=== PATIENT | female | born 1940 | race Caucasian/White ===

== ENCOUNTER 2020-07-31 18:47 | Emergency (ER) | payer OTHER, MEDICAID ==
[~2020-07-31] VITALS: Ht 167.6 cm; Wt 66.7 kg
--- NOTE | 2020-07-31 19:00 | NUR ---
ERMD EVALUATING PATIENT IN AMBULANCE.
[2020-07-31 19:20] VITALS: BP 161/82
--- NOTE | 2020-07-31 19:51 | NUR ---
1952 BIBA DIRECTLY TO ER BED 9.
--- NOTE | 2020-07-31 20:00 | NUR ---
PER FACILITY PT IS COVID +.
--- NOTE | 2020-07-31 20:00 | NUR ---
80 Y/O FEMALE BIBA FROM [facility] S/P FALL . PER PT SHE WAS BEING TRANSFERRED FROM CHAIR TO HER BED IN A SLING AND THE SLING TIPPED OVER. PT STATES SHE FELL ON THE BACK OF HER HEAD AND BL ELBOWS. PT DENIES LOC , N/V , BLURRY VISION. PT C/O OF 6/10 THROBBING HEADACHE. PT SECONDARY C/O OF BL ELBOW & PELVIC PAIN. +PEDAL PULSE ON LEFT LE. PT HAS AKA ON RT LE. + BL RADIAL PULSES. A/O X 4. PERRLA. +SURGEON'S ASSISTANT STRENGTH. OBSERVED FENTANYL PATCH ON LEFT CHEST. PT LAYING SUPINE IN BED, LOCKED AND IN LOWEST POSITION, VSS. NO ACUTE DISTRESS NOTED. PMH: CHF, CVA, HTN, PVD, COPD, AKA,HYPERLIPIDEMIA AX: SULFA
--- NOTE | 2020-07-31 20:05 | NUR ---
lab at bedside.
[2020-07-31 20:21] LABS: BASOPHILS % (AUTO) 0.4 % (0.0-2.0); EOSINOPHILS # (AUTO) 0.2 K/uL (0-0.4); EOSINOPHILS % (AUTO) 3.3 % (0.0-4.0); HEMATOCRIT 37.5 % (36-48); HEMOGLOBIN 12.2 g/dL (12.0-16.0); LYMPHOCYTES # (AUTO) 1.1 K/uL (2.5-16.5); LYMPHOCYTES % (AUTO) 21.3 % (20.5-51.1); MEAN CORPUSCULAR HEMOGLOBIN 27 pg (27-31); MEAN CORPUSCULAR HGB CONC 33 g/dL (33-37); MEAN CORPUSCULAR VOLUME 82.9 fL (80-94); MONOCYTES # (AUTO) 0.4 K/uL (0.8-1.0); MONOCYTES % (AUTO) 8.1 % (1.7-9.3); NEUTROPHILS # (AUTO) 3.5 K/uL (1.8-7.7); NEUTROPHILS % (AUTO) 66.9 % (42.2-75.2); PLATELET COUNT (AUTO) 192 K/uL (140-450); RED BLOOD CELL COUNT(AUTO) 4.52 MIL/uL (4.20-5.40); RED CELL DISTRIBUTION WIDTH 14.9 % (11.6-13.7); WHITE BLOOD COUNT (AUTO) 5.2 K/uL (4.8-10.8)
[2020-07-31 20:38] LABS: PROTHROMBIN TIME 16.4 secs (10.8-13.4)
--- NOTE | 2020-07-31 20:40 | NUR ---
PT TAKEN TO RADIOLOGY VIA [facility].
[2020-07-31 20:43] LABS: ALBUMIN 2.6 g/dL (3.4-5.0); ASPARTATE AMINOTRANSFERASE 26 U/L (15-37); CARBON DIOXIDE 30.6 mmol/L (21-32); CHLORIDE 102 mmol/L (98-107); CREATININE 0.9 mg/dL (0.6-1.3); GLUCOSE 93 mg/dL (74-106); POTASSIUM 3.6 mmol/L (3.5-5.1); SODIUM SERUM 137 mmol/L (136-145); TOTAL BILIRUBIN 0.3 mg/dL (0.0-1.0); UREA NITROGEN, BLOOD 17 mg/dL (7-18)
--- NOTE | 2020-07-31 23:39 | NUR ---
pt sleeping in bed, locked and in lowest position, HOB elevated, side rail x 2 for pt safety. VSS. No acute distress noted.
--- NOTE | 2020-08-01 04:39 | NUR ---
Pt sleeping in bed, visible rise and fall of chest, bed locked and in lowest position, VSS. No acute distress noted.
--- NOTE | 2020-08-01 06:50 | NUR ---
Perineal care provided. Pt repositioned onto left side. No acute distress noted. VSS.
--- NOTE | 2020-08-01 07:22 | NUR ---
Report provided to MAYRA Nagy for transfer of care.
--- NOTE | 2020-08-01 09:44 | NUR ---
DENIA LEARY CALLED AND GIVEN REPORT TO [employer] IDENTIFIER.
--- NOTE | 2020-08-01 10:12 | NUR ---
PT ALERT AND AWAKE, BREATHING EVEN AND UNLABORED. NO DISTRESS NOTED.
--- NOTE | 2020-08-01 13:50 | NUR ---
PT ALERT AND AWAKE, BREATHING EVEN AND UNLABORED.
--- NOTE | 2020-08-01 15:50 | NUR ---
[facility]SP[facility] AT BEDSIDE, TAKING PATIENT
--- NOTE | 2020-08-01 15:50 | NUR ---
Patient discharged with v/s stable. Written and verbal after care instructions about fall prevention and home safety given and explained. Patient verbalized understanding. Ambulatory with steady gait. All questions addressed prior to discharge. Advised to follow up with PMD.
[2020-08-01 15:52] VITALS: BP 137/57
== END 2020-08-01 15:10 | disposition home or self-care (01) ==
LOC: MED 18:47
DX: S09.90XA Unspecified injury of head, initial encounter (principal); M25.522 Pain in left elbow; M25.532 Pain in left wrist; M25.551 Pain in right hip; M25.552 Pain in left hip; I11.0 Hypertensive heart disease with heart failure; E78.00 Pure hypercholesterolemia, unspecified; Z86.73 Personal history of transient ischemic attack (TIA), and cerebral infarction without residual deficits; Z88.2 Allergy status to sulfonamides; W18.39XA Other fall on same level, initial encounter; Y93.89 Activity, other specified; Y92.89 Other specified places as the place of occurrence of the external cause; Y99.8 Other external cause status
CPT/HCPCS: 36415; 70450; 72192; 73080; 73110; 80053; 85025; 85610; 99285